=== PATIENT | male | born 1995 | race Caucasian/White ===

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

== ENCOUNTER 2020-07-11 01:10 | Emergency (ER) | payer MEDICAID, OTHER ==
[~2020-07-11] VITALS: Ht 182.9 cm; Wt 102.1 kg
[~2020-07-11 01:10] MED LIST changes: +PRON; -PROVENTIL2.5 MG/3 M
[2020-07-11 01:21] VITALS: BP 111/59
--- NOTE | 2020-07-11 01:21 | NUR ---
TO BED AMBULATORY
--- NOTE | 2020-07-11 01:41 | NUR ---
Dr. Russell examining patient.
[2020-07-11] MEDS ORDERED: KETOROLAC 60 MG/2 ML VIAL IM ONE (01:45)
[2020-07-11] MEDS ORDERED: IBUP-2213 PO (02:06)
--- NOTE | 2020-07-11 02:09 | NUR ---
PTS LEFT ARM WAS PLACED IN A SHOULDER IMOBOLIZER. PTS [facility].
[2020-07-11 02:25] VITALS: BP 111/59
--- NOTE | 2020-07-11 02:25 | NUR ---
Patient discharged with v/s stable. Written and verbal after care instructions given and explained. Patient alert, oriented and verbalized understanding of instructions. [g ED.DCMODE] with [g ED.D/CMODE]. All questions addressed prior to discharge. ID band removed. Patient advised to follow up with PMD. Rx of IBUPROFEN given. Patient educated on indication of medication including possible reaction and side effects. Opportunity to ask questions provided and answered.
== END 2020-07-11 02:25 | disposition home or self-care (01) ==
LOC: MED 01:10
DX: M77.12 Lateral epicondylitis, left elbow (principal)
CPT/HCPCS: 73080; 96372; 99283; J1885

== ENCOUNTER 2021-06-23 00:45 | Emergency (ER) | payer OTHER ==
[~2021-06-23] VITALS: Ht 182.9 cm; Wt 106.6 kg
[~2021-06-23 00:45] MED LIST changes: +IBUP-2213 PO
[2021-06-23 00:46] VITALS: BP 131/90
--- NOTE | 2021-06-23 00:48 | NUR ---
TO [facility] AMBULATORY
[2021-06-23] MEDS ORDERED: ALBU0.0912 INH (01:12)
[2021-06-23] MEDS ORDERED: ALBUTEROL HFA MDI 90 MCG/ACTUATION 8 GM INH ONE ×2 (01:29→01:30)
[2021-06-23 01:45] VITALS: BP 131/90
--- NOTE | 2021-06-23 01:48 | NUR ---
Patient discharged with v/s stable. Written and verbal after care instructions given and explained. Patient verbalized understanding. Ambulatory with steady gait. All questions addressed prior to discharge. Advised to follow up with PMD.
== END 2021-06-23 01:45 | disposition home or self-care (01) ==
LOC: MED 00:45
DX: J45.909 Unspecified asthma, uncomplicated (principal); F41.9 Anxiety disorder, unspecified; Z76.0 Encounter for issue of repeat prescription
CPT/HCPCS: 94664; 99283; J3535

== ENCOUNTER 2022-02-21 20:16 | Emergency (ER) | payer OTHER ==
[~2022-02-21] VITALS: Ht 182.9 cm; Wt 103.4 kg
[~2022-02-21 20:16] MED LIST changes: +ALBU0.0912 INH
[2022-02-21 20:28] VITALS: BP 146/90
[2022-02-21] MEDS ORDERED: KETOROLAC 15 MG/ML VIAL IM ONE (21:45)
[2022-02-21] MEDS ORDERED: IBUP-2213 PO (21:45)
[2022-02-21 22:18] VITALS: BP 146/90
== END 2022-02-21 20:18 | disposition home or self-care (01) ==
LOC: MED 20:16
DX: S93.401A Sprain of unspecified ligament of right ankle, initial encounter (principal); J45.909 Unspecified asthma, uncomplicated; Z79.899 Other long term (current) drug therapy; X58.XXXA Exposure to other specified factors, initial encounter; Y93.67 Activity, basketball; Y92.89 Other specified places as the place of occurrence of the external cause; Y99.8 Other external cause status
CPT/HCPCS: 73610; 96372; 99283; J1885

== ENCOUNTER 2023-04-22 05:20 | Observation (INO) | payer OTHER ==
[~2023-04-22] VITALS: Ht 182.9 cm; Wt 113.4 kg
[2023-04-22 05:26] VITALS: BP 125/85; PULSE 91; RESP 20; TEMP 97.9; O2SAT 99
[2023-04-22] MEDS ORDERED: ONDANSETRON 4 MG ODT PO ONE (06:15)
[2023-04-22] MEDS ORDERED: NACL 0.9% 1,000 ML IV SCH ×2 (06:25→09:20)
[2023-04-22 07:03] LABS: BASOPHILS # (AUTO) 0.1 K/uL (0.00-0.22); BASOPHILS % (AUTO) 0.3 % (0.0-2.0); EOSINOPHILS # (AUTO) 0.1 K/uL (0-0.4); EOSINOPHILS % (AUTO) 0.5 % (0.0-4.0); HEMATOCRIT 48.4 % (36-52); HEMOGLOBIN 16.6 g/dL (12.0-18.0); LYMPHOCYTES # (AUTO) 2.4 K/uL (2.0-11.5); LYMPHOCYTES % (AUTO) 15.6 % (20.5-51.1); MEAN CORPUSCULAR HEMOGLOBIN 29 pg (27-31); MEAN CORPUSCULAR HGB CONC 34 g/dL (33-37); MEAN CORPUSCULAR VOLUME 85.5 fL (80-94); MONOCYTES % (AUTO) 6.5 % (1.7-9.3); NEUTROPHILS % (AUTO) 77.1 % (42.2-75.2); PLATELET COUNT (AUTO) 335 K/uL (140-450); RED BLOOD CELL COUNT(AUTO) 5.66 MIL/uL (4.20-6.10); RED CELL DISTRIBUTION WIDTH 13.1 % (11.6-13.7); WHITE BLOOD COUNT (AUTO) 15.6 K/uL (4.8-10.8)
[2023-04-22 07:18] LABS: ANION GAP 13.5 (8-16); CALCIUM 9.7 mg/dL (8.5-10.1); CARBON DIOXIDE 26.2 mmol/L (21-32); CREATININE 1.3 mg/dL (0.6-1.3); POTASSIUM 3.7 mmol/L (3.5-5.1)
[2023-04-22 07:22] LABS: ALBUMIN 4.1 g/dL (3.4-5.0); BILIRUBIN,DIRECT 0.2 mg/dL (0.0-0.3); TOTAL BILIRUBIN 0.8 mg/dL (0.0-1.0); TOTAL PROTEIN, SERUM 8.9 g/dL (6.4-8.2)
[2023-04-22] MEDS ORDERED: PANTOPRAZOLE 40 MG INJ VIAL IVP ONE (09:00)
[2023-04-22] MEDS ORDERED: CLON0.5T4 PO (09:15)
[2023-04-22] MEDS ORDERED: ALPR0.5T2 PO (09:15)
[2023-04-22] MEDS ORDERED: MAGNESIUM OXIDE 400 MG TAB PO PRN (09:20)
[2023-04-22] MEDS ORDERED: ACETAMINOPHEN 325 MG TAB PO PRN (09:20)
[2023-04-22] MEDS ORDERED: KCL 20 MEQ IN 100 mL PREMIX 200 ML IV PRN (09:20)
[2023-04-22] MEDS ORDERED: MAG SULF 2000 MG/WATER PREMIX 50 ML IV PRN (09:20)
[2023-04-22] MEDS ORDERED: HYDROcodone/APAP 5/325 MG 1 TAB TAB PO PRN (09:20)
[2023-04-22] MEDS ORDERED: MORPHINE SULFATE 4 MG/ML SYR IVP PRN (09:20)
[2023-04-22] MEDS ORDERED: ONDANSETRON 4 MG/2 ML VIAL IVP PRN (09:20)
[2023-04-22] MEDS ORDERED: POTASSIUM CHLORIDE 10 MEQ TABER PO PRN (09:20)
[2023-04-22] MEDS ORDERED: diphenhydrAMINE 50 MG/ML VIAL ONE (15:14)
[2023-04-22] MEDS ORDERED: fentaNYL citrate 0.05 MG/ML VIAL ONE (15:15)
[2023-04-22] MEDS ORDERED: MIDAZOLAM 5 MG/5 ML VIAL ONE (15:15)
[2023-04-22] MEDS: POTASSIUM CHL 20 MEQ/D5-1/2NS 1,000 ML IV SCH (15:53)
[2023-04-22 15:55] VITALS: PULSE 85; RESP 18; O2SAT 100
[2023-04-22] MEDS ORDERED: fentaNYL citrate 0.05 MG/ML VIAL IVP ONE (16:05)
[2023-04-22] MEDS ORDERED: MIDAZOLAM 2 MG/2 ML VIAL IVP ONE (16:05)
[2023-04-22 16:08] VITALS: BP 126/61; PULSE 66; RESP 18; TEMP 98; O2SAT 98
[2023-04-22] MEDS: METOCLOPRAMIDE 10 MG/2 ML INJ VIAL IVP SCH (16:36)
[2023-04-22 19:25] LABS: AMPHETAMINE, URINE NEGATIVE ng/ml (NEG <=1000); BARBITURATE, URINE NEGATIVE ng/ml (NEG <=200); BENZODIAZEPINE, URINE POSITIVE ng/mL (NEG <=200); CANNABINOID, URINE POSITIVE ng/mL (NEG <=50); COCAINE, URINE NEGATIVE ng/mL (NEG <=300)
[2023-04-22 19:26] LABS: OPIATE, URINE NEGATIVE ng/mL (NEG <=2000); PHENCYCLIDINE SCREEN,URINE NEGATIVE ng/mL (NEG <=25)
[2023-04-22 20:00] VITALS: BP 132/72; PULSE 75; RESP 17; TEMP 98.5; O2SAT 94
[2023-04-22] MEDS: PANTOPRAZOLE 40 MG INJ VIAL IVP SCH (20:45)
[2023-04-22] MEDS: SENNA 8.6 MG TAB PO SCH (20:45)
[2023-04-23] MEDS: POTASSIUM CHL 20 MEQ/D5-1/2NS 1,000 ML IV SCH ×2 (02:25→15:20)
[2023-04-23 07:13] LABS: BASOPHILS % (AUTO) 0.4 % (0.0-2.0); EOSINOPHILS # (AUTO) 0.2 K/uL (0-0.4); EOSINOPHILS % (AUTO) 2.1 % (0.0-4.0); HEMATOCRIT 44.5 % (36-52); HEMOGLOBIN 15.1 g/dL (12.0-18.0); LYMPHOCYTES % (AUTO) 28.1 % (20.5-51.1); MEAN CORPUSCULAR HEMOGLOBIN 30 pg (27-31); MEAN CORPUSCULAR HGB CONC 34 g/dL (33-37); MEAN CORPUSCULAR VOLUME 87.2 fL (80-94); MONOCYTES # (AUTO) 1.1 K/uL (0.8-1.0); NEUTROPHILS # (AUTO) 6.3 K/uL (1.8-7.7); NEUTROPHILS % (AUTO) 59.4 % (42.2-75.2); PLATELET COUNT (AUTO) 280 K/uL (140-450); RED CELL DISTRIBUTION WIDTH 13.3 % (11.6-13.7); WHITE BLOOD COUNT (AUTO) 10.6 K/uL (4.8-10.8)
[2023-04-23 08:00] VITALS: BP 127/73; PULSE 60; RESP 18; TEMP 97.3; O2SAT 98
[2023-04-23 08:37] LABS: ALBUMIN 3.4 g/dL (3.4-5.0); ANION GAP 15.3 (8-16); CALCIUM 8.7 mg/dL (8.5-10.1); CARBON DIOXIDE 22.7 mmol/L (21-32); MAGNESIUM 2.1 mg/dL (1.8-2.4); TOTAL BILIRUBIN 0.7 mg/dL (0.0-1.0); TOTAL PROTEIN, SERUM 7.6 g/dL (6.4-8.2)
[2023-04-23] MEDS: METOCLOPRAMIDE 10 MG/2 ML INJ VIAL IVP SCH ×3 (10:00→17:00)
[2023-04-23] MEDS: SENNA 8.6 MG TAB PO SCH (10:01)
[2023-04-23] MEDS: PANTOPRAZOLE 40 MG INJ VIAL IVP SCH (10:01)
[2023-04-23 16:00] VITALS: BP 129/76; PULSE 55; RESP 18; TEMP 97.2; O2SAT 99
== END 2023-04-23 20:18 | disposition left against medical advice (07) ==
LOC: MED 05:20 → MMU 09:19 → MTU 15:15
PROVIDERS: ADMIT Hospitalist; ATTEND Hospitalist
DX: K92.0 Hematemesis (principal); N28.9 Disorder of kidney and ureter, unspecified; J45.909 Unspecified asthma, uncomplicated; K80.20 Calculus of gallbladder without cholecystitis without obstruction; F41.9 Anxiety disorder, unspecified; Z56.0 Unemployment, unspecified; Z79.899 Other long term (current) drug therapy
CPT/HCPCS: 36415; 43235; 71045; 74018; 76700; 80048; 80053; 80076; 80305; 83690; 83735; 85025; 87081; 96361; 96374; 96375; 96376; 99284; C9113; G0378; J2250; J2765; J3010; Q0092; Q0162; J1200

== ENCOUNTER 2023-06-07 14:27 | Emergency (ER) | payer OTHER ==
[~2023-06-07] VITALS: Ht 181.6 cm; Wt 116.6 kg
[~2023-06-07 14:27] MED LIST changes: -ALBU0.0912 INH; +ALPR0.5T2 PO; +CLON0.5T4 PO; -IBUP-2213 PO
[2023-06-07 14:35] VITALS: BP 118/80; PULSE 96; RESP 20; TEMP 98.1; O2SAT 98
[2023-06-07] MEDS ORDERED: BENZ1GEL13 MM (15:43)
[2023-06-07] MEDS: IBUPROFEN 600 MG TAB PO ONE (15:43)
[2023-06-07] MEDS ORDERED: CHLO473S62 PO (15:43)
[2023-06-07] MEDS ORDERED: IBUP-2213 PO (15:43)
== END 2023-06-07 15:55 | disposition home or self-care (01) ==
LOC: MED 14:27
DX: S01.532A Puncture wound without foreign body of oral cavity, initial encounter (principal); J45.909 Unspecified asthma, uncomplicated; Z79.899 Other long term (current) drug therapy; Z79.1 Long term (current) use of non-steroidal anti-inflammatories (NSAID); X58.XXXA Exposure to other specified factors, initial encounter; Y93.89 Activity, other specified; Y92.89 Other specified places as the place of occurrence of the external cause; Y99.8 Other external cause status
CPT/HCPCS: 99282

== ENCOUNTER 2023-07-24 17:42 | Emergency (ER) | payer OTHER ==
[~2023-07-24] VITALS: Ht 182.9 cm; Wt 117.9 kg
[~2023-07-24 17:42] MED LIST changes: +BENZ1GEL13 MM; +CHLO473S62 PO; +IBUP-2213 PO
[2023-07-24 18:23] VITALS: BP 149/87; PULSE 72; RESP 16; TEMP 97.7; O2SAT 100
[2023-07-24] MEDS ORDERED: ATA25 PO (18:55)
[2023-07-24] MEDS ORDERED: MELA10CA PO (18:55)
== END 2023-07-24 19:26 | disposition home or self-care (01) ==
LOC: MED 17:42
DX: F41.9 Anxiety disorder, unspecified (principal); M79.10 Myalgia, unspecified site; J45.909 Unspecified asthma, uncomplicated; Z79.899 Other long term (current) drug therapy
CPT/HCPCS: 99282

== ENCOUNTER 2023-07-24 21:31 | Emergency (ER) | payer OTHER ==
[~2023-07-24] VITALS: Ht 182.9 cm; Wt 117.9 kg
[~2023-07-24 21:31] MED LIST changes: +ATA25 PO; +MELA10CA PO
[2023-07-24 21:35] VITALS: BP 145/90; PULSE 98; RESP 18; TEMP 98; O2SAT 100
[2023-07-24 22:07] LABS: BASOPHILS # (AUTO) 0.1 K/uL (0.00-0.22); BASOPHILS % (AUTO) 0.4 % (0.0-2.0); EOSINOPHILS # (AUTO) 0.2 K/uL (0-0.4); EOSINOPHILS % (AUTO) 1.7 % (0.0-4.0); HEMATOCRIT 46.5 % (36-52); HEMOGLOBIN 16.3 g/dL (12.0-18.0); LYMPHOCYTES # (AUTO) 2.7 K/uL (2.0-11.5); LYMPHOCYTES % (AUTO) 21.2 % (20.5-51.1); MEAN CORPUSCULAR HEMOGLOBIN 31 pg (27-31); MEAN CORPUSCULAR HGB CONC 35 g/dL (33-37); MEAN CORPUSCULAR VOLUME 87.8 fL (80-94); MONOCYTES % (AUTO) 7.5 % (1.7-9.3); NEUTROPHILS # (AUTO) 8.9 K/uL (1.8-7.7); NEUTROPHILS % (AUTO) 69.2 % (42.2-75.2); PLATELET COUNT (AUTO) 348 K/uL (140-450); RED CELL DISTRIBUTION WIDTH 13.6 % (11.6-13.7); WHITE BLOOD COUNT (AUTO) 12.8 K/uL (4.8-10.8)
[2023-07-24 22:23] LABS: ANION GAP 20.3 (8-16); CALCIUM 9.8 mg/dL (8.5-10.1); CARBON DIOXIDE 21.9 mmol/L (21-32); CREATININE 1.4 mg/dL (0.6-1.3); POTASSIUM 4.2 mmol/L (3.5-5.1)
[2023-07-24 22:29] LABS: ALCOHOL, BLOOD < 3 mg/dL (<10)
[2023-07-24 22:30] LABS: ACETAMINOPHEN < 0.5 ug/ml (10-30); SALICYLATE < 2.8 mg/dL (2.8-20.0)
[2023-07-24] MEDS: ACETAMINOPHEN 325 MG TAB PO ONE (23:27)
== END 2023-07-25 00:28 | disposition home or self-care (01) ==
LOC: MED 21:31
DX: S00.11XA Contusion of right eyelid and periocular area, initial encounter (principal); R55 Syncope and collapse; E86.0 Dehydration; N17.9 Acute kidney failure, unspecified; J45.909 Unspecified asthma, uncomplicated; Z79.899 Other long term (current) drug therapy; X58.XXXA Exposure to other specified factors, initial encounter; Y93.89 Activity, other specified; Y92.89 Other specified places as the place of occurrence of the external cause; Y99.8 Other external cause status
CPT/HCPCS: 36415; 70450; 80048; 85025; 93005; 99284; G0480; G0482

== ENCOUNTER 2023-08-24 13:34 | Emergency (ER) | payer OTHER ==
[~2023-08-24] VITALS: Ht 182.9 cm; Wt 113.4 kg
[2023-08-24 14:05] VITALS: BP 120/77; PULSE 97; RESP 18; TEMP 97.8; O2SAT 99
[2023-08-24 15:07] LABS: APPEARANCE,URINE CLEAR (CLEAR); BILIRUBIN,URINE NEGATIVE (NEGATIVE); BLOOD, URINE NEGATIVE (NEGATIVE); COLOR,URINE YELLOW (YELLOW); LEUKOCYTE ESTERASE ,URINE NEGATIVE (NEGATIVE); NITRITE, URINE NEGATIVE (NEGATIVE); PROTEIN,URINE NEGATIVE (NEGATIVE); UGLUCOSE NEGATIVE (NEGATIVE); UROBILINOGEN,URINE 0.2 EU/dL (0.2 - 1)
[2023-08-24 15:13] LABS: BASOPHILS # (AUTO) 0.1 K/uL (0.00-0.22); BASOPHILS % (AUTO) 0.8 % (0.0-2.0); EOSINOPHILS # (AUTO) 0.5 K/uL (0-0.4); EOSINOPHILS % (AUTO) 6.9 % (0.0-4.0); HEMATOCRIT 43.3 % (36-52); HEMOGLOBIN 15.1 g/dL (12.0-18.0); LYMPHOCYTES # (AUTO) 2.7 K/uL (2.0-11.5); LYMPHOCYTES % (AUTO) 38.6 % (20.5-51.1); MEAN CORPUSCULAR HEMOGLOBIN 31 pg (27-31); MEAN CORPUSCULAR HGB CONC 35 g/dL (33-37); MEAN CORPUSCULAR VOLUME 88.2 fL (80-94); MONOCYTES # (AUTO) 0.6 K/uL (0.8-1.0); MONOCYTES % (AUTO) 8.2 % (1.7-9.3); NEUTROPHILS # (AUTO) 3.2 K/uL (1.8-7.7); NEUTROPHILS % (AUTO) 45.5 % (42.2-75.2); PLATELET COUNT (AUTO) 248 K/uL (140-450); RED BLOOD CELL COUNT(AUTO) 4.92 MIL/uL (4.20-6.10); RED CELL DISTRIBUTION WIDTH 13.2 % (11.6-13.7); WHITE BLOOD COUNT (AUTO) 6.9 K/uL (4.8-10.8)
[2023-08-24 15:32] LABS: ALBUMIN 4.1 g/dL (3.4-5.0); BILIRUBIN,DIRECT 0.1 mg/dL (0.0-0.3); TOTAL BILIRUBIN 0.2 mg/dL (0.0-1.0); TOTAL PROTEIN, SERUM 8.1 g/dL (6.4-8.2)
[2023-08-24 15:38] LABS: AMPHETAMINE, URINE NEGATIVE ng/ml (NEG <=1000); BARBITURATE, URINE NEGATIVE ng/ml (NEG <=200); BENZODIAZEPINE, URINE POSITIVE ng/mL (NEG <=200); CANNABINOID, URINE POSITIVE ng/mL (NEG <=50); COCAINE, URINE NEGATIVE ng/mL (NEG <=300); PHENCYCLIDINE SCREEN,URINE NEGATIVE ng/mL (NEG <=25)
[2023-08-24 15:39] LABS: OPIATE, URINE POSITIVE ng/mL (NEG <=2000)
[2023-08-24 15:48] LABS: ANION GAP 13.9 (8-16); CALCIUM 9.6 mg/dL (8.5-10.1); CARBON DIOXIDE 29.4 mmol/L (21-32); CREATININE 0.9 mg/dL (0.6-1.3); POTASSIUM 4.3 mmol/L (3.5-5.1)
[2023-08-24 15:54] LABS: SALICYLATE < 2.8 mg/dL (2.8-20.0)
[2023-08-24 15:59] VITALS: BP 134/68; PULSE 79; RESP 19; TEMP 98.5; O2SAT 99
== END 2023-08-24 15:53 | disposition home or self-care (01) ==
LOC: MED 13:34
DX: M25.571 Pain in right ankle and joints of right foot (principal); M25.531 Pain in right wrist; J45.909 Unspecified asthma, uncomplicated; Z79.899 Other long term (current) drug therapy
CPT/HCPCS: 36415; 80048; 80076; 80305; 81003; 85025; 99283; G0480

== ENCOUNTER 2024-01-28 20:24 | Emergency (ER) | payer OTHER ==
[~2024-01-28] VITALS: Ht 182.9 cm; Wt 105.7 kg
[2024-01-28 20:31] VITALS: BP 120/64; PULSE 92; RESP 20; TEMP 97.1; O2SAT 97
[2024-01-28 20:41] VITALS: PULSE 90; RESP 21; O2SAT 99
[2024-01-28] MEDS ORDERED: ALBUTEROL SULFATE/IPRATROPIU 3 ML SOL IH ONE (20:49)
[2024-01-28] MEDS: ALBUTEROL SULFATE/IPRATROPIU 3 ML SOL IH ONE (20:51)
[2024-01-28 20:53] VITALS: PULSE 86; RESP 21; O2SAT 99
[2024-01-28] MEDS ORDERED: PRED20TA5 PO (21:42)
[2024-01-28] MEDS ORDERED: ALBU0.0912 INH (21:42)
[2024-01-28 21:47] VITALS: BP 120/64; PULSE 86; RESP 21; TEMP 97.1; O2SAT 99
== END 2024-01-28 21:46 | disposition home or self-care (01) ==
LOC: MED 20:24
DX: J45.901 Unspecified asthma with (acute) exacerbation (principal); Z79.899 Other long term (current) drug therapy
CPT/HCPCS: 94640; 99283